=== PATIENT | female | born 2000 | race Caucasian/White ===

== ENCOUNTER 2022-11-03 20:23 | Emergency (ER) | payer BC ==
[~2022-11-03] VITALS: Ht 162.6 cm; Wt 64.0 kg
--- NOTE | 2022-11-03 20:52 | ED General ---
General Chief Complaint: Fever-Adult/Adol Stated Complaint: RIGHT FOOT|STEPPED ON WOOD NAIL Source of Information: Patient Exam Limitations: No Limitations (FAHAD MENDOZA) History of Present Illness Date Seen by Provider: Nov 03, 2022 Time Seen by Provider: 20:50 Initial Comments Patient is a 22-year-old female presents ED for flulike symptoms. She states on Monday she stepped on a wood carpet nail. She denied of any bleeding or obvious wound to the right foot. She states she felt something sharp. Started developing flulike symptoms the next day which was monday. Bodyaches, chills, pain in the left arm, sore throat, ear pain. She reports intense coughing. Denies any shortness of breath or chest pain. She did vomit mucus. No pain with urination frequent urination, vaginal discharge. No one else at home with similar symptoms. Last tetanus shot was 5 years ago. She did also reports generalized head pain. Denies any visual changes, unilateral muscle weakness or sensory changes, neck pain, middle lower back pain, abdominal pain, fever. She took Tylenol right before arrival (FAHAD MENDOZA) Allergies and Home Medications Allergies Coded Allergies: No Known Drug Allergies (Unverified , 11/03/22) Patient Home Medication List Home Medication List Reviewed: Yes (FAHAD MENDOZA) Review of Systems Review of Systems Constitutional: chills; No diaphoresis; fever, malaise, weakness EENTM: No ear pain, No blurred vision, No double vision Respiratory: cough; No dyspnea on exertion, No short of breath Cardiovascular: No chest pain Gastrointestinal: No abdominal pain, No constipation; vomiting Musculoskeletal: No back pain, No joint pain Skin: No change in color, No change in hair/nails (FAHAD MENDOZA) All Other Systems Reviewed Negative Unless Noted: Yes (FAHAD MENDOZA) Physical Exam Vital Signs Vital Signs - First Documented 11/03/22 11/03/22 20:40 22:27 Temp 38.2 Pulse 94 Resp 16 B/P (MAP) 114/73 (87) Pulse Ox 100 O2 Delivery Room Air (NAWAFMANJINDERA Courtney DO) Vital Signs Capillary Refill : (FAHAD MENDOZA) Height, Weight, BMI Height: '" Weight: lbs. oz. kg; BMI Method: General Appearance: No Apparent Distress, WD/WN Eyes: Bilateral Eye Normal Inspection, Bilateral Eye PERRL, Bilateral Eye EOMI HEENT: PERRL/EOMI, TMs Normal, Normal ENT Inspection, Pharynx Normal Neck: Full Range of Motion, Normal Inspection, Non Tender, Supple Respiratory: Chest Non Tender, Lungs Clear, Normal Breath Sounds, No Accessory Muscle Use, No Respiratory Distress Cardiovascular: Regular Rate, Rhythm, No Edema, No Gallop, No JVD, No Murmur Gastrointestinal: Normal Bowel Sounds, No Organomegaly, No Pulsatile Mass, Non Tender Extremity: Normal Capillary Refill, Normal Inspection, Normal Range of Motion, Non Tender, No Calf Tenderness Neurologic/Psychiatric: Alert, Oriented x3, No Motor/Sensory Deficits, Normal Mood/Affect, hydrogen cell tender II-XII Norm as Tested (FAHAD MENDOZA) Progress/Results/Core Measures Suspected Sepsis SIRS Temperature: Pulse: Respiratory Rate: Blood Pressure / Mean: (FAHAD MENDOZA) Results/Orders Lab Results Laboratory Tests Test 11/03/22 21:22 11/03/22 21:35 Range/Units Influenza Type A (RT-PCR) Not Detected Not Detecte Influenza Type B (RT-PCR) Not Detected Not Detecte SARS-CoV-2 RNA (RT-PCR) Not Detected Not Detecte Group A Streptococcus Screen NEGATIVE NEGATIVE Urine Color YELLOW Urine Clarity CLEAR Urine pH 6.0 5-9 Urine Specific [place] 1.015 L 1.016-1.022 Urine Protein NEGATIVE NEGATIVE Urine Glucose (UA) NEGATIVE NEGATIVE Urine Ketones NEGATIVE NEGATIVE Urine Nitrite NEGATIVE NEGATIVE Urine Bilirubin NEGATIVE NEGATIVE Urine Urobilinogen 0.2 < = 1.0 MG/DL Urine Leukocyte Esterase NEGATIVE NEGATIVE Urine RBC (Auto) NEGATIVE NEGATIVE Urine RBC NONE /HPF Urine WBC RARE /HPF Urine Squamous Epithelial Cells 5-10 /HPF Urine Crystals PRESENT H /LPF Urine Amorphous Sediment FEW IVON URATES H /LPF Urine Bacteria FEW H /HPF Urine Casts NONE /LPF Urine Mucus NEGATIVE /LPF Urine Culture Indicated NO Urine Test NEGATIVE NEGATIVE (DARIANA MCCRACKEN DO) Micro Results Microbiology 11/03/22 Throat Culture - Preliminary, Resulted (DARIANA MCCRACKEN DO) Vital Signs/I&O 11/03/22 11/03/22 20:40 22:27 Temp 38.2 36.8 Pulse 94 80 Resp 16 16 B/P (MAP) 114/73 (87) 98/59 Pulse Ox 100 O2 Delivery Room Air (NAWAFDARIANA Courtney OCASIO) Vital Signs/I&O Capillary Refill : (FAHAD MENDOZA) Departure Communication (PCP) Patient concern for tetanus. Stepped on a wood carpet nail on Monday. Started developing symptoms the next day of flulike symptoms. There is no evidence of puncture to the right foot. She reports body aches, chills, sore throat, ear pain with a mild cough. Not necessarily concern for tetanus. Symptoms started before incubation period between 3 to 21 days. She is up-to-date on her tetanus. There is no area of inoculation to the right foot. Did recommend checking a urine, COVID, influenza and strep. She did have a small vesicle to the oral pharynx. No exudate. No cervical adenopathy. Bilateral TMs clear. Strep a, COVID influenza negative. Lung sounds clear bilateral. Stable vital signs besides temperature 100.7. She did receive ibuprofen. She has been vomit ing mucus. She does not appear toxic or septic. Recommend continue conservative treatment at home with Tylenol ibuprofen. Recommend oral hydration. Do not necessarily believe patient needs lab work at this time. She does not appear toxic. Continue monitoring symptoms at home. If any worsening symptoms such as continue high fever, severe abdominal pain uncontrollable vomiting, short of breath, change in skin color to return back to ED. Patient and mother agree with plan of action. Follow-up your PCP in 2 to 3 days for reevaluation. (FAHAD MENDOZA) Impression Primary Impression: Viral syndrome Disposition: HOME, SELF-CARE Condition: Stable Departure-Patient Inst. Decision time for Depature: 22:12 (FAHAD MENDOZA) Referrals: ERVIN LENZ (PCP/Family) Primary Care Physician Patient Instructions: Viral Syndrome (DC) Add. Discharge Instructions: Continue with Tylenol ibuprofen for fever. Recommend staying hydrated. If any worsening symptoms such as fever, developing abdominal pain or short of breath to return back to ED. Follow-up with PCP in 2 to 3 days for reevaluation All discharge instructions reviewed with patient and/or family. Voiced understanding. ATTENDING PHYSICIAN NOTE: I WAS PHYSICALLY PRESENT ER PHYSICIAN, BUT I WAS NOT INVOLVED IN ANY DECISION MAKING OR ANY CARE OF THIS PATIENT, AND I AM NOT COLLABORATING PHYSICIAN. (DARIANA MCCRACKEN DO) FAHAD MENDOZA Nov 03, 2022 20:52 DARIANA MCCRACKEN DO Nov 05, 2022 06:08
[2022-11-03] MEDS ORDERED: IBUPROFEN TABLET 200 MG TAB PO ONE (21:30)
[2022-11-03 21:45] LABS: BILIRUBIN,URINE NEGATIVE (NEGATIVE); CLARITY,URINE CLEAR; COLOR,URINE YELLOW; GLUCOSE, URINE (UA) NEGATIVE (NEGATIVE); KETONES,URINE NEGATIVE (NEGATIVE); LEUKOCYTE ESTERASE ,URINE NEGATIVE (NEGATIVE); NITRITE,URINE NEGATIVE (NEGATIVE); PROTEIN,URINE NEGATIVE (NEGATIVE)
[2022-11-03 22:00] LABS: AMORPHOUS SEDIMENT,UR FEW AMOR URATES /LPF; BACTERIA,URINE FEW /HPF; WBC,URINE RARE /HPF
[2022-11-03 22:27] VITALS: BP 98/59
== END 2022-11-03 22:27 | disposition home or self-care (01) ==
LOC: ER 20:26
DX: B34.9 Viral infection, unspecified (principal); R05.9 Cough, unspecified; R51.9 Headache, unspecified; R68.83 Chills (without fever); Z20.822 Contact with and (suspected) exposure to COVID-19; Z28.310 Unvaccinated for COVID-19
CPT/HCPCS: 81000; 84703; 87430; 87636; 99283